=== PATIENT | male | born 1930 | race Caucasian/White ===

== ENCOUNTER 2017-01-21 08:44 | Emergency (ER) | payer MEDICARE, OTHER ==
[2017-01-21 09:06] LABS: BASO % 0.5 % (0.2-1.2); EOS # 0.2 10_X3_uL (0.0-0.5); EOS % 2.4 % (0.8-7.0); HEMATOCRIT 32.1 % (40-51); HEMOGLOBIN 10.5 g/dL (13.7-17.5); LYMPH # 1.4 10_X3_uL (1.3-3.6); LYMPH % 22.5 % (21.8-53.1); MEAN CORPUSCULAR HEMOGLOBIN 30.3 pg (27.0-33.0); MEAN CORPUSCULAR HGB CONC 32.7 g/dL (32.0-36.0); MEAN CORPUSCULAR VOLUME 92.5 fL (79-92); MEAN PLATELET VOLUME 10.3 fl (7.5-11.5); MONO # 0.7 10_X3_uL (0.3-0.8); MONO % 10.6 % (5.3-12.2); PLATELET COUNT 146 x10_3/uL (163-337); RED BLOOD COUNT 3.47 x10_6/uL (4.6-6.1); WHITE BLOOD COUNT 6.2 x10_3/uL (4.2-9.1)
[2017-01-21 09:21] LABS: CALCIUM 8.9 mg/dL (8.7-10.7); CREATININE 1.4 mg/dL (0.6-1.3); POTASSIUM 4.6 mmol/L (3.5-5.1)
== END 2017-01-21 12:20 | disposition short-term general hospital (02) ==
LOC: ER 08:44
PROVIDERS: Internal Medicine
DX: R07.89 Other chest pain (principal); I25.10 Atherosclerotic heart disease of native coronary artery without angina pectoris; Z88.5 Allergy status to narcotic agent; Z79.899 Other long term (current) drug therapy; M25.512 Pain in left shoulder
CPT/HCPCS: 36415; 71010; 80048; 82550; 82553; 85025; 93005; 99070; 99285; 99285-25